=== PATIENT | female | born 1980 | race Caucasian/White ===

== ENCOUNTER 2016-09-10 11:22 | Emergency (ER) | payer OTHER ==
[~2016-09-10] VITALS: Ht 165.1 cm; Wt 59.0 kg
[~2016-09-10 11:22] MED LIST: LEVO50TA6 PO
[2016-09-10 11:26] VITALS: TEMP 37.3; Ht 165.1 cm; Wt 59.0 kg
[2016-09-10] MEDS ORDERED: LEVO25TA5 PO (11:36)
[2016-09-10 12:12] LABS: PREG INTERNAL NEGATIVE QC NEG CLEAR BACKGROUND; PREG INTERNAL POSITIVE QC POS CONTROL LINE
[2016-09-10 12:12] LABS: URINE APPEARANCE CLEAR (CLEAR); URINE BILIRUBIN NEG (NEG); URINE COLOR YELLOW; URINE NITRITE NEG (NEG); URINE SPECIFIC GRAVITY 1.005 (1.000-1.030); UROBILINOGEN NEG (NEG)
[2016-09-10 12:24] LABS: MANUAL MICROSCOPIC REQUIRED? NO; REVIEW REQ? NO
[2016-09-10] MEDS ORDERED: KETOROLAC TROMETHAMINE 60 MG/2 ML VIAL IM STA (12:30)
--- NOTE | 2016-09-10 13:40 | DIAGNOSTIC IMAGING REPORT ---
LUMBAR SPINE RADIOGRAPHS CLINICAL HISTORY: Lower back pain. COMPARISON: None FINDINGS: Alignment of the lumbar spine is anatomic. Vertebral body heights are maintained. No fracture or suspicious lesion is identified. Disc spaces are preserved. Sacroiliac joints are intact. IMPRESSION: Unremarkable lumbar spine radiographs. No fracture or subluxation. Electronically signed by: Rao Cain M.D. 09/10/2016 1:39 PM Dictated Date/Time: 09/10/2016 1:38 PM
[2016-09-10] MEDS ORDERED: OXYC1TAB3 PO (13:55)
[2016-09-10] MEDS ORDERED: MoRPHine SULFATE 10 MG/ML CARP/VIAL IM STA (14:14)
[2016-09-10 14:26] VITALS: BP 119/68; PULSE 71; O2SAT 100
--- NOTE | 2016-09-10 18:41 | EMERGENCY ROOM VISIT NOTE ---
History Report prepared by Anurag: Indu Noel Under the Supervision of: Dr. Kiko Malcolm D.O. First contact with patient: 12:19 Chief Complaint: BACK PAIN Stated Complaint: BACK PAIN History of Present Illness The patient is a 36 year old female who presents to the Emergency Room with complaints of persistent lower back pain starting this morning at 0710. The patient woke up at 0700 and soon after began to experience pain in her back, making it hard for her to walk. She states she cannot stand up straight or lay down flat because of the pain. She has never experienced this pain before. She denies any recent heavy lifting, trauma, or twisting. She denies any abdominal pain, fever, urinary symptoms, numbness, weakness, or tingling in her legs. The pain does not radiate to her legs. She denies any drug use. She is able to move her bowels and urinate without difficulty. She has pain with walking but otherwise no weakness. No history of cancer. Source of History: patient Onset: 0710 this morning Position: back (lower) Timing: other (persistent) Modifying Factors (Worsening): other (walking, laying flat) Associated Symptoms: No abdominal pain, No fevers, No numbness, No urinary symptoms, No weakness Note: Pt denies any tingling. Review of Systems See HPI for pertinent positives & negatives. A total of 10 systems reviewed and were otherwise negative. Past Medical & Surgical Surgical Problems: (1) History of appendectomy (2) History of removal of ovarian cyst Family History FH: heart disease Hypertension Social History Smoking Status: Never Smoker Alcohol Use: occasionally Drug Use: none Marital Status: Housing Status: lives with family Occupation Status: employed Current/Historical Medications Scheduled Levothyroxine Sodium (Levothyroxine Sodium), 25 MCG PO DAILY Scheduled PRN Oxycodone Immediate Rel Tab (Roxicodone Ir), 5 MG PO Q6H PRN for Pain Allergies Coded Allergies: No Known Allergies (Unverified , 12/24/15) Physical Exam Vital Signs Date Time Temp Pulse Resp B/P Pulse Ox O2 Delivery O2 Flow Rate FiO2 09/10/16 14:26 71 16 119/68 100 Room Air 09/10/16 12:54 79 16 121/72 99 Room Air 09/10/16 11:26 37.3 82 18 109/63 99 Room Air Physical Exam GENERAL: sitting up in bed, no distress, non-toxic EYE EXAM: normal conjunctiva OROPHARYNX: no exudate, no erythema, lips, buccal mucosa, and tongue normal and mucous membranes are moist NECK: supple, no nuchal rigidity, no adenopathy, non-tender LUNGS: Clear to auscultation. Normal chest wall mechanics HEART: no murmurs, S1 normal and S2 normal ABDOMEN: abdomen soft, non-tender, normo-active bowel sounds, no masses, no rebound or guarding. BACK: Back is symmetrical on inspection and there is no deformity, no midline tenderness, no CVA tenderness. SKIN: no rashes and no bruising UPPER EXTREMITIES: upper extremities are grossly normal. LOWER EXTREMITIES: Flexion and extension of hip, knee, ankle, EHL, 5/5 bilaterally. Patellar and Achilles reflexes 2/4. Gross sensation intact. DP 2/ 4 B/L. NEURO EXAM: Normal sensorium. Medical Decision & Procedures ER Provider Diagnostic Interpretation: Xray results per the radiologist and my interpretation. LUMBAR SPINE RADIOGRAPHS CLINICAL HISTORY: Lower back pain. COMPARISON: None FINDINGS: Alignment of the lumbar spine is anatomic. Vertebral body heights are maintained. No fracture or suspicious lesion is identified. Disc spaces are preserved. Sacroiliac joints are intact. IMPRESSION: Unremarkable lumbar spine radiographs. No fracture or subluxation. Electronically signed by: Rao Cain M.D. 09/10/2016 1:39 PM Dictated Date/Time: 09/10/2016 1:38 PM Laboratory Results Test 09/10/16 00:00 09/10/16 12:04 Urine Color YELLOW Urine Appearance CLEAR (CLEAR) Urine pH 8.0 (4.5-7.5) Urine Specific [place] 1.005 (1.000-1.030) Urine Protein NEG (NEG) Urine Glucose (UA) NEG (NEG) Urine Ketones NEG (NEG) Urine Occult Blood NEG (NEG) Urine Nitrite NEG (NEG) Urine Bilirubin NEG (NEG) Urine Urobilinogen NEG (NEG) Urine Leukocyte Esterase NEG (NEG) Urine Test NEG (NEG) Laboratory results per my review. Medications Administered Medications (Trade) Dose Ordered Sig/Marilou Route Start Time Stop Time Status Last Admin Dose Admin Ketorolac Tromethamine (Toradol Inj) 60 mg NOW STAT IM 09/10/16 12:30 09/10/16 12:31 DC 09/10/16 12:55 60 MG Morphine Sulfate (MoRPHine SULFATE INJ) 6 mg NOW STAT IM 09/10/16 14:14 09/10/16 14:15 DC 09/10/16 14:23 6 MG ED Course ED COURSE: Vital signs were reviewed and showed normal vitals. The patients medical record was reviewed The above diagnostic studies were performed and reviewed. ED treatments and interventions as stated above. 1223: The patient was evaluated in room B12A. A complete history and physical examination was performed. 1230: Toradol Inj 60 mg IM. 1414: Morphine Sulfate 6 mg IM. 1420: Upon reevaluation, the patient is feeling better after the Toradol. I discussed my findings with the patient and she understands and agrees with the treatment plan. Based on the patients age, coexisting illnesses, exam and lab findings the decision to treat as an outpatient was made. The patient remained stable while under my care. The patient appeared well at the time of discharge. Medical Decision Differential diagnoses includes but is not limited to lumbar radiculopathy, muscle strain, facture, cauda equina, mass, and disc herniation. Patient is a 36 her old female who presents the ER with low back pain. She notes that this is worse with movement. This pain started about 5 days ago and is located in her left lower her spinal region. No trauma, no history of cancer , no fevers, and no drug use. She is completely neurologically intact. Reflexes along with strength is intact. No signs of cauda equina. No saddle paresthesias. X-ray of her lumbar spine was unremarkable. UA showed no hematuria to suggest a kidney stone. Pain was completely resolved when she was sitting. Patient was given IM Toradol and morphine and had improvement of her pain. She is discharged follow-up with her primary care doctor as this is likely musculoskeletal back pain. Discussed with Pt concerning signs and symptoms to watch out for. Pt was instructed to follow up with their PCP and discussed with the patient their option to return to the ED at anytime for persistent or worsening symptoms. The appropriate anticipatory guidance and out- patient management, including indications for return to the emergency department , were explained at length to the patient and understood. [place] Drug Monitoring Program Search Results: patient reviewed within database, no issues identified Impression Primary Impression: Strain of lumbar region Scribe Attestation The scribe's documentation has been prepared under my direction and personally reviewed by me in its entirety. I confirm that the note above accurately reflects all work, treatment, procedures, and medical decision making performed by me. Departure Information Dispostion Home / Self-Care Prescriptions Oxycodone Immediate Rel Tab (ROXICODONE IR) 5 Mg Tab 5 MG PO Q6H Y for Pain, #15 TAB Prov: Gold Kiko Wu, DO 09/10/16 Referrals No Doctor, Assigned (PCP) Forms HOME CARE DOCUMENTATION FORM, IMPORTANT VISIT INFORMATION Patient Instructions Back Pain - [facility], My [facility] Additional Instructions Please follow up with your primary care doctor with in the next 24 hours. Any worsening of your symptoms, please return to the ED immediately. This includes any weakness or numbness in her legs or groin, unable to move your bowels, unable to urinate worsening pain, fevers greater than 100.4, or any other concerning signs or symptoms from your standpoint. You were given medications during this visit that will inhibit your ability to drive, operate machinery and work. Please do NOT drive, operate machinery or work for the next 12hrs. You were also given a prescription for a narcotic/ OxyIR. While taking this medication you should also not drive, operate machinery and or work. Please take 400 mg of Motrin 3 times a day as needed for pain. Problem Qualifiers Primary Impression: Strain of lumbar region Encounter type: initial encounter Qualified Codes: S39.012A - Strain of muscle, fascia and tendon of lower back, initial encounter
== END 2016-09-10 14:49 | disposition home or self-care (01) ==
LOC: C.EDB 11:24
DX: S39.012A Strain of muscle, fascia and tendon of lower back, initial encounter (principal); X58.XXXA Exposure to other specified factors, initial encounter